=== PATIENT | female | born 1960 | race Caucasian/White ===

== ENCOUNTER 2024-11-26 05:41 | Outpatient (CLI) | payer MEDICARE, MEDICAID | END 2024-11-26 23:59 | disposition home or self-care (01) | LOC: MRI02 05:41 | PROVIDERS: ATTEND Physical Medicine & Rehabilitation | DX: M47.814 Spondylosis without myelopathy or radiculopathy, thoracic region (principal); M54.6 Pain in thoracic spine; G93.0 Cerebral cysts; M48.04 Spinal stenosis, thoracic region | CPT/HCPCS: 72146 ==